=== PATIENT | female | born 1985 | race African-American/Black ===

== ENCOUNTER 2016-11-14 22:23 | Emergency (ER) | payer OTHER ==
[2016-11-14] MEDS ORDERED: ALPRAZOLAM ER2 M1 PO (22:50)
[2016-11-14] MEDS ORDERED: ARMOUR THYROID PO (22:50)
[2016-11-14] MEDS ORDERED: ADDERALL XR 3030 M1 PO (22:51)
[2016-11-14] MEDS ORDERED: XANAX1 M1 PO (22:51)
[2016-11-14] MEDS ORDERED: PRENATAL VITAM1 EAC5 PO (22:52)
[2016-11-14] MEDS ORDERED: ALEVE220 M3 PO (22:52)
[2016-11-14] MEDS ORDERED: VISTARIL25 M1 PO (23:27)
== END 2016-11-14 23:39 ==
LOC: EDMED 22:23
DX: O99.342 Other mental disorders complicating pregnancy, second trimester (principal); F41.9 Anxiety disorder, unspecified; O99.282 Endocrine, nutritional and metabolic diseases complicating pregnancy, second trimester; E07.9 Disorder of thyroid, unspecified; Z3A.15 15 weeks gestation of pregnancy; Z79.890 Hormone replacement therapy; Z79.899 Other long term (current) drug therapy